=== PATIENT | female | born 1970 | race Caucasian/White ===

== ENCOUNTER → 2017-04-28 | Outpatient (CLI) | payer BC ==
--- NOTE | 2017-04-29 06:59 | MM ---
Reason for exam: additional evaluation requested from abnormal screening. Last mammogram was performed less than 1 month ago. History: Family history of breast cancer in mother at age 65 and breast cancer in maternal aunt at age 56. Took hormonal contraceptives for 12 years. Physical Findings: Nurse did not find any significant physical abnormalities on exam. MG Work Up Mamm w CAD LT Spot compression CC, spot compression MLO, and LM view(s) were taken of the left breast. Prior study comparison: April 16, 2017, bilateral MG screening mammo w CAD. May 27, 2015, bilateral MG screening mammo w CAD. The breast tissue is heterogeneously dense. This may lower the sensitivity of mammography. There is no discrete abnormality persists on additional views. These results were verbally communicated with the patient and result sheet given to the patient on 04/28/17. ASSESSMENT: Negative, BI-RAD 1 RECOMMENDATION: Return to routine screening mammogram schedule for both breasts.
== END | disposition home or self-care (01) ==
LOC: RADMAMWWP 14:33
PROVIDERS: ATTEND Obstetrics & Gynecology
DX: R92.8 Other abnormal and inconclusive findings on diagnostic imaging of breast (principal)
CPT/HCPCS: 77065

== ENCOUNTER → 2018-05-12 | Outpatient (CLI) | payer BC ==
--- NOTE | 2018-05-14 14:11 | MM ---
Reason for exam: screening (asymptomatic). Last mammogram was performed 1 year ago. History: Family history of breast cancer in mother at age 65 and breast cancer in maternal aunt at age 56. Took hormonal contraceptives for 12 years. MG 3D Screening Mammo W/Cad Bilateral CC and MLO view(s) were taken. XCCL view(s) were taken of the left breast. Prior study comparison: April 28, 2017, left breast MG work up mamm w CAD LT. April 16, 2017, bilateral MG screening mammo w CAD. No significant changes when compared with prior studies. ASSESSMENT: Benign, BI-RAD 2 RECOMMENDATION: Routine screening mammogram of both breasts in 1 year.
== END | disposition home or self-care (01) ==
LOC: RADMAMWWP 14:04
PROVIDERS: ATTEND Obstetrics & Gynecology
DX: Z12.31 Encounter for screening mammogram for malignant neoplasm of breast (principal); Z80.3 Family history of malignant neoplasm of breast
CPT/HCPCS: 77063; 77067

== ENCOUNTER → 2019-06-12 | Outpatient (CLI) | payer BC ==
--- NOTE | 2019-06-13 09:07 | MM ---
Reason for exam: screening (asymptomatic). Last mammogram was performed 1 year and 1 month ago. History: Family history of breast cancer in mother at age 65 and breast cancer in maternal aunt at age 56. Took hormonal contraceptives for 12 years. Physical Findings: A clinical breast exam by your physician is recommended on an annual basis and results should be correlated with mammographic findings. MG 3D Screening Mammo W/Cad Bilateral CC and MLO view(s) were taken. Prior study comparison: May 12, 2018, bilateral MG 3d screening mammo w/cad. April 28, 2017, left breast MG work up mamm w CAD LT. The breast tissue is heterogeneously dense. This may lower the sensitivity of mammography. No significant changes when compared with prior studies. ASSESSMENT: Negative, BI-RAD 1 RECOMMENDATION: Routine screening mammogram of both breasts in 1 year.
== END | disposition home or self-care (01) ==
LOC: RADMAMWWP 07:07
PROVIDERS: ATTEND Family Medicine
DX: Z12.31 Encounter for screening mammogram for malignant neoplasm of breast (principal)
CPT/HCPCS: 77063; 77067

== ENCOUNTER → 2020-07-25 | Outpatient (CLI) | payer BC ==
--- NOTE | 2020-07-29 10:20 | MM ---
Reason for exam: screening (asymptomatic). Last mammogram was performed 1 year and 1 month ago. History: Family history of breast cancer in mother at age 65 and breast cancer in maternal aunt at age 56. Took hormonal contraceptives for 12 years. Physical Findings: A clinical breast exam by your physician is recommended on an annual basis and results should be correlated with mammographic findings. MG 3D Screening Mammo W/Cad Bilateral CC and MLO view(s) were taken. Prior study comparison: June 12, 2019, bilateral MG 3d screening mammo w/cad. May 12, 2018, bilateral MG 3d screening mammo w/cad. April 16, 2017, bilateral MG screening mammo w CAD. May 27, 2015, bilateral MG screening mammo w CAD. The breast tissue is heterogeneously dense. This may lower the sensitivity of mammography. No significant changes when compared with prior studies. ASSESSMENT: Benign, BI-RAD 2 RECOMMENDATION: Routine screening mammogram of both breasts in 1 year.
== END | disposition home or self-care (01) ==
LOC: RADMAMWWP 07:37
PROVIDERS: ATTEND Obstetrics & Gynecology
DX: Z12.31 Encounter for screening mammogram for malignant neoplasm of breast (principal); Z80.3 Family history of malignant neoplasm of breast
CPT/HCPCS: 77063; 77067

== ENCOUNTER 2021-02-12 07:15 | Day surgery (SDC) | payer BC ==
[2021-02-10 11:52] VITALS: BMI 25.4
[2021-02-12] MEDS ORDERED: LIDOCAINE 1% (10MG/ML) FOR IV START INTRADERMA PRN (07:36)
[2021-02-12] MEDS ORDERED: LACTATED RINGERS 1,000 ML IV SCH (07:36)
[2021-02-12 07:56] LABS: Glucose,Whole Blood 87 mg/dL (75-99)
[2021-02-12] MEDS ORDERED: ONDANSETRON 4 MG/2 ML VIAL ONE (07:58)
[2021-02-12] MEDS ORDERED: DEXAMETHASONE SOD PHOSPHATE 4 MG/ML 1 ML VIAL IV ONE (08:02)
[2021-02-12] MEDS ORDERED: ONDANSETRON 4 MG/2 ML VIAL IVP ONE (08:02)
[2021-02-12] MEDS ORDERED: LIDOCAINE 1% INJ 10MG/ML (20 ML MDV) SQ ONE (08:27)
[2021-02-12] MEDS ORDERED: ePHEDrine SULFATE/0.9% NACL/PF 50 MG/5 ML SYRINGE IV ONE (08:36)
[2021-02-12] MEDS ORDERED: LIDOCAINE 1% INJ 10MG/ML (20 ML MDV) ONE (08:36)
[2021-02-12] MEDS ORDERED: PROPOFOL 10 MG/ML 20 ML VIAL IV ONE (08:36)
[2021-02-12] MEDS ORDERED: fentaNYL (PF) 50 MCG/ML 2 ML AMP ONE (08:36)
[2021-02-12] MEDS ORDERED: MIDAZOLAM 2 MG/2 ML VIAL ONE (08:36)
[2021-02-12] MEDS ORDERED: SODIUM CHLORIDE 0.9% 100 ML with CLINDAMYCIN 600 MG IV ONE ×2 (08:41)
--- NOTE | 2021-02-12 09:48 | P.OP ---
Date of Procedure: 02/12/21 Preoperative Diagnosis: Temporal arteritis, left. Postoperative Diagnosis: Same, pending path report. Procedure(s) Performed: Excisional biopsy left temporal artery. Implants: None. Anesthesia: GETA (Via LMA.) Surgeon: Ricardo Duarte Estimated Blood Loss (ml): 2 Urine output (ml): 0 Pathology: other (Excised portion left temporal artery) Condition: stable Disposition: PACU Indications for Procedure: Patient is a 50-year-old female who presented with a history of visual disturbances of the left eye as well as cephalgia. Concern was expressed for the possibility of temporal arteritis and thus excisional biopsy was offered to the patient. The procedure, risk and benefits were discussed. Patient wished to proceed. Description of Procedure: Patient was brought the upper and placed in supine position and administered general inhalational by the department of anesthesia. Patient received 600 mg of Cleocin intravenously in the perioperative phase for prophylactic antibiotic therapy. The left for head area sterilely prepped and draped in usual manner. Hand held continuous wave Doppler was utilized to confirm location of the artery as palpation did not reveal clearly the location of the artery. Once identified 1% Xylocaine was utilized for local anesthesia tissues overlying the artery. Skin incision was made carried down to the level of the vessel. The artery was identified and approximately 2 cm segment of the artery was excised. He was stasis was achieved using electrocautery. Dermis was closed with 4-0 Monocryl placed in running intradermal fashion and skin glue was then applied. Patient tolerated the procedure well and was taken to the recover area in satisfactory and stable condition.
[2021-02-12] MEDS ORDERED: HYDROmorphone 0.5 MG/0.5 ML SYRINGE IVP ONE ×2 (09:50→10:05)
[2021-02-12 09:56] VITALS: TEMP 97.7
[2021-02-12 10:22] VITALS: RESP 16
[2021-02-12 10:53] VITALS: BP 100/64; PULSE 64
== END 2021-02-12 11:00 | disposition home or self-care (01) ==
LOC: OR 07:15
PROVIDERS: ATTEND Surgery
DX: H53.9 Unspecified visual disturbance (principal); R51.9 Headache, unspecified; R70.0 Elevated erythrocyte sedimentation rate; I10 Essential (primary) hypertension; Z88.0 Allergy status to penicillin; E78.5 Hyperlipidemia, unspecified; K21.9 Gastro-esophageal reflux disease without esophagitis; Z79.899 Other long term (current) drug therapy
CPT/HCPCS: 81025; 88305; 84132; 37609; J2250; J1100; J2405; J2001; J3010; J2704; J1170

== ENCOUNTER → 2021-02-26 | Outpatient (CLI) | payer BC ==
--- NOTE | 2021-02-26 10:51 | MR ---
EXAMINATION TYPE: MR brain wo/w con DATE OF EXAM: 02/26/2021 COMPARISON: None HISTORY: Headaches TECHNIQUE: Multiplanar, multisequence images of the brain and brainstem is performed without and with IV contras t, utilizing 6.5 mL intravenous Gadavist . FINDINGS: Diffusion weighted images demonstrate no evidence of a recent infarct or other diffusion ab normality. There is no extra-axial fluid collection. Scattered hyperintensities are present on inve rsion recovery and T2-weighted sequences involving the frontal lobes, periventricular white matter, s ubcortical white matter, approximately 10-15 lesions are present, largest in the right frontal lobe m easures proximally 4 to 5 mm, axial image 21. The ventricular system and cisternal spaces are normal in size and appearance. The brain volume is age appropriate. Midline structures demonstrate normal morphology. The craniocervical junction appears within normal limits. Post contrast images demonstrate some branching enhancement involved in the juan carlos, axial imag e #30, 31, sagittal image #62 through 67. The dural venous sinuses appear patent. The visualized sinu ses are clear and the globes are intact. IMPRESSION: Nonspecific white matter demyelination can be related to entity such as migraine headache s, hypertension, vasculitis, multiple sclerosis and Lyme disease felt to be less likely. Possible vas cular malformation noted within the juan carlos.
== END | disposition home or self-care (01) ==
LOC: RADMRIMAIN 06:34
PROVIDERS: ATTEND Internal Medicine
DX: R51.9 Headache, unspecified (principal)
CPT/HCPCS: 70553; A9585

== ENCOUNTER → 2021-08-11 | Outpatient (CLI) | payer BC ==
--- NOTE | 2021-08-13 10:42 | MM ---
Reason for exam: screening (asymptomatic). Last mammogram was performed 1 year and 1 month ago. History: Family history of breast cancer in mother at age 65 and breast cancer in maternal aunt at age 56. Took hormonal contraceptives for 12 years. Physical Findings: A clinical breast exam by your physician is recommended on an annual basis and results should be correlated with mammographic findings. MG 3D Screening Mammo W/Cad Bilateral CC and MLO view(s) were taken. Prior study comparison: July 25, 2020, bilateral MG 3d screening mammo w/cad. June 12, 2019, bilateral MG 3d screening mammo w/cad. The breast tissue is extremely dense which could obscure a lesion on mammography. No significant changes when compared with prior studies. ASSESSMENT: Benign, BI-RAD 2 RECOMMENDATION: Routine screening mammogram of both breasts in 1 year.
== END | disposition home or self-care (01) ==
LOC: RADMAMWWP 16:36
PROVIDERS: ATTEND Obstetrics & Gynecology
DX: Z12.31 Encounter for screening mammogram for malignant neoplasm of breast (principal); Z80.3 Family history of malignant neoplasm of breast
CPT/HCPCS: 77063; 77067

== ENCOUNTER → 2022-08-12 | Outpatient (CLI) | payer BC ==
--- NOTE | 2022-08-12 11:52 | MM ---
Reason for Exam: Screening (asymptomatic). Last screening mammogram was performed 12 month(s) ago. Patient History: Menarche at age 13. First Full-Term at age 23. Patient used Hormonal Contraceptives for 12 years. Maternal aunt had breast cancer, age 56. Mother had breast cancer, age 65. Last menstrual period: 07/31/2022 Risk Values: Claudia 5 year model risk: 2.0%. NCI Lifetime model risk: 18.1%. Prior Study Comparison: 06/12/2019 Bilateral Screening Mammogram, [facility]. 07/25/2020 Bilateral Screening Mammogram, [facility]. 08/11/2021 Bilateral Screening Mammogram, [facility]. Tissue Density: The breast tissue is heterogeneously dense. This may lower the sensitivity of mammography. Findings: Analyzed By CAD. There is no suspicious group of microcalcifications or new suspicious mass in either breast. Benign-appearing calcifications within both breasts. Overall Assessment: Benign, BI-RAD 2 Management: Screening Mammogram of both breasts in 1 year. A clinical breast exam by your physician is recommended on an annual basis and results should be correlated with mammographic findings. Electronically signed and approved by: Maco Herrera D.O.
== END | disposition home or self-care (01) ==
LOC: RADMAMWWP 07:29
PROVIDERS: ATTEND Obstetrics & Gynecology
DX: Z12.31 Encounter for screening mammogram for malignant neoplasm of breast (principal); Z80.3 Family history of malignant neoplasm of breast
CPT/HCPCS: 77063; 77067

== ENCOUNTER → 2022-11-02 | Outpatient (CLI) | payer BC ==
--- NOTE | 2022-11-02 21:20 | XR ---
EXAMINATION TYPE: XR knee 4V RT DATE OF EXAM: 11/02/2022 COMPARISON: NONE HISTORY: Pain TECHNIQUE: Three views are submitted. FINDINGS: Joint spaces are preserved. Osseous structures are intact. No acute fracture seen. IMPRESSION: 1. No acute fracture or dislocation. If symptoms persist consider MRI.
--- NOTE | 2022-11-02 21:25 | XR ---
EXAMINATION TYPE: XR chest 2V DATE OF EXAM: 11/02/2022 COMPARISON: 09/16/2021 TECHNIQUE: PA and lateral views submitted. HISTORY: Cough FINDINGS: The lungs are clear and there is no pneumothorax, pleural effusion, or focal pneumonia. Heart size normal and no overt failure. Osseous structures demonstrate hypertrophic and degenerative changes of the spine. Elevation of the left clavicle. AC joint arthropathy bilaterally. IMPRESSION: 1. No acute process. 2. Correlate for AC joint separation on the left with the clavicle riding above the level of the acro mium.
== END | disposition home or self-care (01) ==
LOC: RADXRMAIN 14:28
PROVIDERS: ATTEND Internal Medicine
DX: R05.9 Cough, unspecified (principal); M25.561 Pain in right knee
CPT/HCPCS: 71046

== ENCOUNTER → 2022-11-20 | Outpatient (CLI) | payer BC ==
--- NOTE | 2022-11-20 08:58 | CT ---
EXAMINATION TYPE: CT chest wo con DATE OF EXAM: 11/20/2022 COMPARISON: 11/02/2022 HISTORY: 52-year-old female R05.9, Cough x3 months. TECHNIQUE: Contiguous axial scanning of the chest without contrast. Coronal and sagittal reconstructi ons performed. CT DLP: 146.2mGycm. Automatic exposure control utilized for a dose reduction. FINDINGS: The heart is normal sizer without pericardial effusion. LAD coronary artery calcifications are presen t. Aorta normal caliber with conventional arch vessel branching anatomy. No thoracic lymphadenopathy by CT size criteria. There is some focal volume loss and airspace disease within the anterior basilar right middle lobe an d inferior lingula. Minimal strandy scarring or atelectasis lateral right midlung. No other consolida tion or pleural effusion is seen. Tiny hiatal hernia. Visualized upper abdomen show subtle densities along the renal pyramids, probably concentrated renal salts. Mild degenerative disc disease lower thoracic spine. IMPRESSION: Focal opacities within the basilar right middle lobe and inferior lingula. Pneumonia is possible. Giv en the distribution, correlate to exclude atypical MELANY infection. Consider pulmonary medicine referra l if no established diagnosis.
== END | disposition home or self-care (01) ==
LOC: RADCTMAIN 07:06
PROVIDERS: ATTEND Internal Medicine
DX: R05.9 Cough, unspecified (principal); R91.8 Other nonspecific abnormal finding of lung field
CPT/HCPCS: 71250

== ENCOUNTER → 2023-02-01 | Outpatient (CLI) | payer BC ==
--- NOTE | 2023-02-01 08:22 | CT ---
EXAMINATION TYPE: CT chest w con CT DLP: 132.9 mGycm, Automated exposure control for dose reduction was used. DATE OF EXAM: 02/01/2023 8:06 AM COMPARISON: CT chest 11/20/2022 CLINICAL INDICATION:Female, 52 years old with history of J18.9 pneumonia; PHH, pneumonia TECHNIQUE: Multiple axial images were obtained through the chest following the administration of 100 cc of Isovue 300. . Coronal and sagittal reformats reviewed. FINDINGS: LUNGS/ PLEURA: No pleural effusion, pneumothorax, focal consolidation. Resolution of previously demon strated airspace opacities within the right middle lobe and lingula. No suspicious pulmonary nodules or masses. AIRWAY: Patent and unremarkable.. HEART: Size within normal limits. No pericardial effusion. Mild coronary artery calcifications of the LAD. MEDIASTINUM: No evidence of adenopathy. VASCULATURE: No aortic aneurysm. MUSCULOSKELETAL: Mild disc degeneration changes are present throughout the thoracolumbar spine. No ac francis osseous adenopathy. SOFT TISSUES/LYMPH NODES: Unremarkable. LOWER NECK: No significant findings. 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 Nonobstructive 4 mm left donnie al calculus. IMPRESSION: 1. No acute thoracic process. Resolution of previously demonstrated right middle lobe and lingula air space opacities. 2. Cavernous transformation of the portal vein. 3. Nonobstructive left renal calculus.
== END | disposition home or self-care (01) ==
LOC: RADCTMAIN 07:41
PROVIDERS: ATTEND Internal Medicine Critical Care Medicine
DX: J18.9 Pneumonia, unspecified organism (principal); N20.0 Calculus of kidney; R91.8 Other nonspecific abnormal finding of lung field
CPT/HCPCS: 71260; Q9967

== ENCOUNTER → 2023-05-12 | Outpatient (CLI) | payer BC ==
--- NOTE | 2023-05-12 10:16 | XR ---
EXAMINATION TYPE: XR Hip Complete LT DATE OF EXAM: 05/12/2023 COMPARISON: NONE HISTORY: Pain TECHNIQUE: 2 views submitted FINDINGS: There is no evidence of erosive change or acute fracture. Hypertrophic changes of the acetabulum. The re is spurring along the greater trochanter. Calcification in the pelvis. Mild SI joint arthropathy. IMPRESSION: 1. Mild hypertrophic arthropathy of the hip correlate for femoral acetabular impingement. 2. Spurring of the greater trochanter could be associated with trochanteric bursitis. 3. Mild SI joint arthropathy.
== END | disposition home or self-care (01) ==
LOC: RADXRMAIN 09:42
PROVIDERS: ATTEND Internal Medicine
DX: M16.12 Unilateral primary osteoarthritis, left hip (principal); M25.752 Osteophyte, left hip; M46.1 Sacroiliitis, not elsewhere classified
CPT/HCPCS: 73502

== ENCOUNTER 2023-06-01 10:27 | Emergency (ER) | payer BC ==
[2023-06-01 11:06] VITALS: BP 135/89; RESP 16; TEMP 98
--- NOTE | 2023-06-01 11:45 | ED ---
Fall HPI - General Chief Complaint: Fall Stated Complaint: Foot and arm injury, Fall Time Seen by Provider: 06/01/23 11:29 Source: patient, RN notes reviewed Mode of arrival: ambulatory - History of Present Illness Initial Comments: Patient is a 52-year-old female presented to ER with a chief complaint of a fall. Patient states last night she was walking up a narrow set of stairs with cleaning products in her hands and accidentally tripped hitting her left forearm on the railing. Patient also was endorsing left foot pain. Patient states she did ice and take ibuprofen for pain control with little relief. Patient states it is painful to walk. Patient denies any head injury, loss of consciousness, blood thinner use. Patient denies any paresthesias, weakness, or other injuries. - Related Data Home Medications Medication Instructions Recorded Confirmed Baclofen 10 mg PO HS 02/10/21 05/29/22 Ibuprofen 200 mg PO Q8H PRN 02/10/21 05/29/22 Lisinopril-Hctz 10-12.5 mg 1 tab PO DAILY 02/10/21 05/29/22 [Zestoretic 10-12.5] Allergies Allergy/AdvReac Type Severity Reaction Status Date / Time Penicillins Allergy Rash/Hives Verified 06/01/23 11:04 Review of Systems ROS Statement: Those systems with pertinent positive or pertinent negative responses have been documented in the HPI. ROS Other: All systems not noted in ROS Statement are negative. Past Medical History Past Medical History: GERD/Reflux, Hyperlipidemia, Hypertension Additional Past Medical History / Comment(s): migraines, History of Any Multi-Drug Resistant Organisms: None Reported Additional Past Surgical History / Comment(s): D &C, Past Anesthesia/Blood Transfusion Reactions: Family History of Problems w/ Anest hesia Additional Past Anesthesia/Blood Transfusion Reaction / Comment(s): mother has diff coming out of anesthesia Past Psychological History: No Psychological Hx Reported Smoking Status: Never smoker Past Alcohol Use History: Rare Past Drug Use History: None Reported - Past Family History Mother Family Medical History: Cancer Additional Family Medical History / Comment(s): breast General Exam Limitations: no limitations General appearance: alert, in no apparent distress Head exam: Present: atraumatic, normocephalic, normal inspection Eye exam: Present: normal appearance, PERRL, EOMI. Absent: scleral icterus, conjunctival injection, periorbital swelling Respiratory exam: Present: normal lung sounds bilaterally. Absent: respiratory distress, wheezes, rales, rhonchi, stridor Cardiovascular Exam: Present: regular rate, normal rhythm, normal heart sounds. Absent: systolic murmur, diastolic murmur, rubs, gallop, clicks Extremities exam: Present: normal inspection, full ROM, normal capillary refill, other (Tender to mid left forearm. Minimal bruising 2+ left radial pulse. Sensation intact. 2+ left dorsalis pedis pulse. Full range of motion. Sensation intact. Tenderness to proximal fifth metatarsal. Tenderness to calcaneus). Absent: tenderness, pedal edema, joint swelling, calf tenderness Neurological exam: Present: alert, oriented X3, CN II-XII intact Psychiatric exam: Present: normal affect, normal mood Skin exam: Present: warm, dry, intact, normal color. Absent: rash Course Vital Signs 06/01/23 06/01/23 11:02 13:01 Temperature 98 F Pulse Rate 85 78 Respiratory 16 16 Rate Blood Pressure 135/89 O2 Sat by Pulse 99 98 Oximetry Medical Decision Making - Medical Decision Making Was pt. sent in by a medical professional or institution (, PA, DYNAMOMETER TUNER, urgent care, hospital, or [facility]...) When possible be specific @ -No Did you speak to anyone other than the patient for history (EMS, parent, family, police, friend...)? What history was obtained from this source @ -No Did you review nursing and triage notes (agree or disagree)? Why? @ -I reviewed and agree with nursing and triage notes Were old charts reviewed (outside hosp., previous admission, EMS record, old EKG, old radiological studies, urgent care reports/EKG's, [facility] records)? Report findings @ -No old charts were reviewed Differential Diagnosis (chest pain, altered mental status, abdominal pain women, abdominal pain men, vaginal bleeding, weakness, fever, dyspnea, syncope, headache, dizziness, GI bleed, back pain, seizure, CVA, palpatations, mental health, musculoskeletal)? @ -Differential Musculoskeletal Muscular strain, contusion, ligament sprain, fracture, arthritis, septic arthritis, bursitis, cellulitis, muscle spasm, nerve compression, DVT, arterial occlusion, herpes zoster, electrolyte abnormality, tumor.... This is not meant to be in all inclusive list EKG interpreted by me (3pts min.). @ -None X-rays interpreted by me (1pt min.). @ -Left forearm x-ray interpreted by me shows no acute process. Left foot x- ray interpreted by me significant for calcaneal spur fracture and a bone density adjacent to the cuboid bone. CT interpreted by me (1pt min.). @ -None done U/S interpreted by me (1pt. min.). @ -None done What testing was considered but not performed or refused? (CT, X-rays, U/S, labs)? Why? @ -None What meds were considered but not given or refused? Why? @ -None Did you discuss the management of the patient with other professionals (professionals i.e. , PA, DYNAMOMETER TUNER, lab, RT, psych nurse, rn social work, plain clothes police officer, teacher, air antisubmarine officer, case resource manager)? Give summary @ -No Was smoking cessation discussed for >3mins.? @ -No Was critical care preformed (if so, how long)? @ -No Were there social determinants of health that impacted care today? How? ( Homelessness, low income, unemployed, alcoholism, drug addiction, transportation, low edu. Level, literacy, decrease access to med. care, snf, rehab)? @ -No Was there de-escalation of care discussed even if they declined (Discuss DNR or withdrawal of care, Hospice)? DNR status @ -No What co-morbidities impacted this encounter? (DM, HTN, Smoking, COPD, CAD, Cancer, CVA, ARF, Chemo, Hep., AIDS, mental health diagnosis, sleep apnea, morbid obesity)? @ -None Was patient admitted / discharged? Hospital course, mention meds given and route, prescriptions, significant lab abnormalities, going to OR and other pertinent info. @ -Discharge. Patient is a 52-year-old female presented to ER with chief complaint of a fall injury. Patient denies head injury, loss of consciousness or blood thinner use. History and physical exam were completed. Patient in no signs of acute distress. Patient's left upper and lower extremity neurovascularly intact. Imaging left forearm negative for acute process. Left foot x-ray interpreted by me significant for calcaneal spur fracture and a bone density adjacent to the cuboid bone. Patient tender to proximal fifth metatarsal and plantar surface calcaneus. Patient also had difficulty walking due to pain on exam. Patient received by mouth Tylenol for pain control in the ER. Patient placed in a postoperative boot. Patient advised to follow-up with orthopedics in the next 1 to 2 days. Return parameters were discussed. Patient be discharged stable condition with follow-up to orthopedics. Patient expressed understanding and agreement with plan. Undiagnosed new problem with uncertain prognosis? @ -No Drug Therapy requiring intensive monitoring for toxicity (Heparin, Nitro, Insulin, Cardizem)? @ -No Were any procedures done? @ -No Diagnosis/symptom? @ -Calcaneal spur fracture/cuboid fracture Acute, or Chronic, or Acute on Chronic? @ -Acute Uncomplicated (without systemic symptoms) or Complicated (systemic symptoms)? @ -Uncomplicated Side effects of treatment? @ -No Exacerbation, Progression, or Severe Exacerbation? @ -No Poses a threat to life or bodily function? How? (Chest pain, USA, DC, pneumonia, PE, COPD, DKA, ARF, appy, cholecystitis, CVA, Diverticulitis, Homicidal, Suicidal, threat to staff... and all critical care pts) @ -No - Radiology Data Radiology results: report reviewed, image reviewed Disposition Clinical Impression: Cuboid fracture, Bone spur of inferior portion of calcaneus Disposition: HOME SELF-CARE Condition: Stable Instructions (If sedation given, give patient instructions): Foot Fracture in Adults (ED), Fall Prevention (ED) Additional Instructions: Please continue [id number] Tylenol and Motrin for pain control. Please follow-up with orthopedics in the next 1 to 2 days. Return to ER for any new or worsening symptoms. Is patient prescribed a controlled substance at d/c from ED?: No Referrals: Altaf Harris DO [Primary Care Provider] - 1-2 days Lenny James MD [STAFF PHYSICIAN] - 1-2 days Time of Disposition: 12:47
--- NOTE | 2023-06-01 12:33 | XR ---
EXAMINATION TYPE: XR foot complete LT DATE OF EXAM: 06/01/2023 COMPARISON: NONE HISTORY: Pain TECHNIQUE: Three views are submitted. FINDINGS: The osseous structures are intact. There is no acute fracture or dislocation. Mild first MTP joint hypertrophic arthropathy. There is a calcaneal spur with fracture line at its base. There also is a tiny bony density adjacent to the cuboid bone laterally could represent a tiny avulsion fracture. IMPRESSION: 1. Moderate-sized plantar calcaneal spur which has a fracture line at its base. Correlate with point tenderness. 2. Tiny bony density adjacent to the cuboid bone laterally can be associated with a tiny chip or avul ace fracture correlate with point tenderness.
--- NOTE | 2023-06-01 12:35 | XR ---
EXAMINATION TYPE: XR forearm LT DATE OF EXAM: 06/01/2023 12:27 PM CLINICAL INDICATION:Female, 52 years old with history of injury; COMPARISON: None TECHNIQUE: XR forearm LT; forearm was examined in AP and lateral projections. FINDINGS: No acute osseous pathology, soft tissue swelling or joint dislocations are seen. IMPRESSION: No evidence of acute fracture.
[2023-06-01] MEDS ORDERED: ACETAMINOPHEN TAB 325 MG TAB PO STA (12:51)
[2023-06-01 13:05] VITALS: PULSE 78
== END 2023-06-01 13:01 | disposition home or self-care (01) ==
LOC: EC 10:27
DX: S92.212A Displaced fracture of cuboid bone of left foot, initial encounter for closed fracture (principal); M77.32 Calcaneal spur, left foot; S50.12XA Contusion of left forearm, initial encounter; I10 Essential (primary) hypertension; Z79.899 Other long term (current) drug therapy; Z88.0 Allergy status to penicillin; W10.9XXA Fall (on) (from) unspecified stairs and steps, initial encounter; Y93.01 Activity, walking, marching and hiking
CPT/HCPCS: 99283

== ENCOUNTER 2023-08-06 10:58 | Day surgery (SDC) | payer BC ==
[2023-07-05 12:20] VITALS: BMI 20.5
[~2023-08-06 10:58] MED LIST: HYDROmorphone 0.5 MG/0.5 ML SYRINGE IVP PRN; LIDOCAINE 1% (10MG/ML) FOR IV START INTRADERMA PRN; Pre Op ABX Message 1 EACH MISC MISCELLANE ONE
[2023-08-06] MEDS: LACTATED RINGERS 1,000 ML IV SCH (11:35)
[2023-08-06] MEDS: DEXAMETHASONE SOD PHOSPHATE 4 MG/ML 1 ML VIAL IV ONE (11:48)
[2023-08-06] MEDS: ONDANSETRON 4 MG/2 ML VIAL IVP ONE (11:48)
[2023-08-06] MEDS: MIDAZOLAM 2 MG/2 ML VIAL IV PRN (11:48)
[2023-08-06] MEDS ORDERED: PROPOFOL 10 MG/ML 20 ML VIAL IV ONE (12:25)
[2023-08-06] MEDS ORDERED: ePHEDrine 50 MG/ML 1 ML VIAL ONE (12:25)
[2023-08-06] MEDS ORDERED: LIDOCAINE 1% INJ 10MG/ML (20 ML MDV) ONE (12:25)
[2023-08-06] MEDS ORDERED: KETOROLAC 15 MG/ML 1 ML VIAL ONE (12:25)
[2023-08-06] MEDS ORDERED: fentaNYL (PF) 50 MCG/ML 2 ML AMP ONE (12:25)
[2023-08-06] MEDS ORDERED: MIDAZOLAM 2 MG/2 ML VIAL ONE (12:25)
[2023-08-06] MEDS: BUPIVACAINE (PF) 0.25% 30 ML VIAL SQ ONE (12:45)
[2023-08-06 13:38] VITALS: RESP 16; TEMP 97.4
--- NOTE | 2023-08-06 14:34 | P.OP ---
Date of Procedure: 08/06/23 Preoperative Diagnosis: fractured plantar calcaneal spur left foot Postoperative Diagnosis: same Procedure(s) Performed: excision of plantar calcaneal spur left foot Implants: none Anesthesia: KENRICKA Surgeon: Ike Maria Estimated Blood Loss (ml): 2 Pathology: none sent Condition: stable Disposition: PACU Description of Procedure: the patient was brought into the operative room and placed on table supine position. Timeout was taken to confirm correct patient identifiers, correct laterality surgery, and correct procedure. Once the staff in the room were in agreement timeout, the patient was induced and placed under general anesthesia. 10 mL 0.25% Marcaine was injected over the surgical site of the medial aspect of left heel. The left foot was then prepped and draped in usual manner. Under fluoroscopic visualization, a metallic marker is used to indicate where the fracture calcaneal spur was located. Once that was done the skin was marked and an incision was made through the skin. Blunt instrumentation was used to dissect through the saphenous layer and create a canal superior to the plantar fascia all the way to the calcaneal spur. A 4.0 mm wedge bur was then inserted to the spur. The bur was engaged and used to reduce the spur completely. Fluoroscopic imaging showed complete resolution of the spur. The wound is then thoroughly irrigated with sterile saline. The skin was closed with 4-0 nylon. Nonadherent gauze and a dry sterile dressing were applied to the left foot. The patient tolerated above procedure and anesthesia well and went to recovery with vital signs stable
[2023-08-06 15:02] VITALS: BP 130/74; PULSE 83
== END 2023-08-06 14:58 | disposition home or self-care (01) ==
LOC: OR 10:58
PROVIDERS: ATTEND Podiatrist
DX: M77.32 Calcaneal spur, left foot (principal); I10 Essential (primary) hypertension; K21.9 Gastro-esophageal reflux disease without esophagitis; Z88.0 Allergy status to penicillin; Z79.899 Other long term (current) drug therapy
CPT/HCPCS: 81025; 28119; J2250; J1100; J2405; J2001; J3010; J1885; J2704; J0665

== ENCOUNTER → 2023-09-16 | Outpatient (CLI) | payer BC ==
--- NOTE | 2023-09-17 10:06 | MM ---
Reason for Exam: Screening (asymptomatic). Last mammogram was performed 1 year(s) and 1 month(s) ago. Patient History: Menarche at age 13. First Full-Term at age 23. Premenopausal. Patient used Hormonal Contraceptives for 12 years. Maternal aunt had breast cancer, age 56. Mother had breast cancer, age 65. Risk Values: Claudia 5 year model risk: 2.0%. NCI Lifetime model risk: 17.9%. Prior Study Comparison: 07/25/2020 Bilateral Screening Mammogram, [facility]. 08/11/2021 Bilateral Screening Mammogram, [facility]. 08/12/2022 Bilateral MG 3D screening mammo w/cad, [facility]. Tissue Density: The breasts are extremely dense, which lowers the sensitivity of mammography. Findings: Analyzed By CAD. The pattern is symmetrical. No significant interval change No suspicious groups of microcalcifications, spiculated or lobular masses, architectural distortion or other secondary signs of malignancy are mammographically apparent. Overall Assessment: Benign, BI-RAD 2 Management: Screening Mammogram of both breasts in 1 year. A negative mammogram report should not preclude additional follow up of suspicious palpable abnormalities. Patient should continue monthly self breast exam. A clinical breast exam by your physician is recommended on an annual basis and results should be correlated with mammographic findings. Note on Claudia scores and lifetime risk: 1. A Claudia score greater than 3% is considered moderate risk. If this is the case, consider specialist referral to assess eligibility for a risk reducing agent. 2. If overall lifetime risk for the development of breast cancer is 20% or higher, the patient may qualify for future screening with alternating mammogram and breast MRI. Electronically signed and approved by: Andrea Parker D.O. Radiologis
== END | disposition home or self-care (01) ==
LOC: RADMAMWWP 15:05
PROVIDERS: ATTEND Obstetrics & Gynecology
DX: Z12.31 Encounter for screening mammogram for malignant neoplasm of breast (principal); Z80.3 Family history of malignant neoplasm of breast
CPT/HCPCS: 77063; 77067

== ENCOUNTER → 2024-01-27 | Outpatient (CLI) | payer BC ==
--- NOTE | 2024-01-27 10:13 | MM ---
Reason for Exam: Clinical finding. Last screening mammogram was performed 5 month(s) ago. Indicated Problems: Lump or thickening of the left side for 2 Week(s). Patient History: Menarche at age 13. First Full-Term at age 23. Perimenopausal. Patient used Hormonal Contraceptives for 12 years. Maternal aunt had breast cancer, age 56. Mother had breast cancer, age 65. Risk Values: Claudia 5 year model risk: 2.1%. NCI Lifetime model risk: 17.6%. Prior Study Comparison: 04/28/2017 Left Diagnostic Mammogram, [facility]. 05/12/2018 Bilateral Screening Mammogram, [facility]. 06/12/2019 Bilateral Screening Mammogram, [facility]. 07/25/2020 Bilateral Screening Mammogram, [facility]. 08/11/2021 Bilateral Screening Mammogram, [facility]. 08/12/2022 Bilateral MG 3D screening mammo w/cad, [facility]. 09/16/2023 Bilateral MG 3D screening mammo w/cad, [facility]. Tissue Density: Left: The breasts are heterogeneously dense, which may obscure small masses. Findings: Analyzed By CAD. No distinct mass or distortion at the site of clinical concern. Ultrasound is recommended. Overall Assessment: Incomplete: need additional imaging evaluation, BI-RAD 0 Management: Diagnostic Breast Ultrasound of the left breast. . Results were given to the patient verbally at the time of exam. Patient should continue monthly self-breast exams. A clinical breast exam by your physician is recommended on an annual basis. This exam should not preclude additional follow-up of suspicious palpable abnormalities. Note on Claudia scores and lifetime risk: 1. A Claudia score greater than 3% is considered moderate risk. If this is the case, consider specialist referral to assess eligibility for a risk reducing agent. 2. If overall lifetime risk for the development of breast cancer is 20% or higher, the patient may qualify for future screening with alternating mammogram and breast MRI. [facility], , 01/27/2024 10:10 AM. Electronically signed and approved by: Carson Shi M.D. Radiologis
--- NOTE | 2024-01-27 10:46 | USB ---
Reason for Exam: Clinical finding. Patient History: Menarche at age 13. First Full-Term at age 23. Perimenopausal. Patient used Hormonal Contraceptives for 12 years. Maternal aunt had breast cancer, age 56. Mother had breast cancer, age 65. Risk Values: Claudia 5 year model risk: 2.1%. NCI Lifetime model risk: 17.6%. Technique: Method: Targeted. Prior Study Comparison: 08/11/2021 Bilateral Screening Mammogram, [facility]. 08/12/2022 Bilateral MG 3D screening mammo w/cad, [facility]. 09/16/2023 Bilateral MG 3D screening mammo w/cad, [facility]. Findings: The area of palpable concern of the left breast, the axilla of the left breast and the retroareolar of the left breast were scanned. Small superficial hypoechoic well marginated hypoechoic lesion measuring 0.4 x 0.25 cm is too small to characterize however may reflect a small complex cyst. Clinical correlation is advised as well as 6 month follow-up ultrasound. Overall Assessment: Probably benign, BI-RAD 3 Management: Diagnostic Breast Ultrasound of the left breast in 6 months. A clinical breast exam by your physician is recommended on an annual basis and results should be correlated with mammographic findings. This exam should not preclude additional follow-up of suspicious palpable abnormalities. Results were given to the patient verbally at the time of exam. [facility], , 01/27/2024 10:31 AM. Electronically signed and approved by: Carson Shi M.D. Radiologis
== END | disposition home or self-care (01) ==
LOC: RADMAMWWP 09:38
PROVIDERS: ATTEND Internal Medicine
DX: N63.20 Unspecified lump in the left breast, unspecified quadrant (principal); Z80.3 Family history of malignant neoplasm of breast
CPT/HCPCS: 77061; 77065

== ENCOUNTER 2024-02-23 07:34 | Day surgery (SDC) | payer BC ==
[~2024-02-23 07:34] MED LIST changes: -HYDROmorphone 0.5 MG/0.5 ML SYRINGE IVP PRN; -Pre Op ABX Message 1 EACH MISC MISCELLANE ONE
[2024-02-23 08:20] VITALS: TEMP 98.3
[2024-02-23] MEDS: LACTATED RINGERS 1,000 ML IV SCH (08:22)
[2024-02-23] MEDS ORDERED: LIDOCAINE 1% INJ 10MG/ML (20 ML MDV) ONE (09:07)
[2024-02-23] MEDS ORDERED: PROPOFOL 10 MG/ML 20 ML VIAL IV ONE (09:07)
[2024-02-23] MEDS: IV FLUID CONTINUATION 1,000 ML IV ONE (09:09)
--- NOTE | 2024-02-23 09:16 | P.PCN ---
Date of Procedure: 02/23/24 Procedure(s) Performed: BRIEF HISTORY: Patient is a 53-year-old, pleasant, white female scheduled for an upper endoscopy as a part evaluation of iron deficiency anemia. She did have a colonoscopy in May 2022 that was negative. Does have longstanding history of GERD and is on omeprazole 20 mg daily.. PROCEDURE PERFORMED: Esophagogastroduodenoscopy with biopsy PREOPERATIVE DIAGNOSIS: Iron deficiency anemia. IV sedation per anesthesia. PROCEDURE: After informed consent was obtained, the patient was brought into the endoscopy unit. IV sedation was administered by Anesthesia under continuous monitoring. Initially the Olympus GIF-140 video endoscope was inserted into the mouth. Esophagus intubated without any difficulty. It was gradually advanced into the stomach and duodenum and carefully examined. The bulb and the second part of the duodenum appeared normal. Cold biopsies were done from the duodenum to rule out celiac disease. The scope at this time was withdrawn to the stomach, adequately insufflated with air, and upon careful examination, mucosa of the antrum, had linear areas of erythema consistent with gastritis and biopsies were done from this area. Mucosa of the body, cardia and the fundus appeared normal. There were several gastric polyps identified measuring between 3 to 5 mm in size which were biopsied. The scope was then withdrawn into the esophagus. The GE junction was located at 39 cm from the incisors. It appeared irregular but there was no evidence of esophagitis or Martinez's esophagus. THe rest of the esophagus appeared normal. There were no erosions or ulcerations seen and the patient tolerated the procedure well. IMPRESSION: 1. Multiple small gastric polyps. 2. Antral erosive gastritis 3. Small hiatal hernia and irregular GE junction but no evidence of esophagitis or Martinez's esophagus. RECOMMENDATIONS: The findings of this examination were discussed with the patient as well as his family. She was advised to follow-up with the biopsy results. Continue with prazosin and iron supplements and monitor CBC periodically..
[2024-02-23 09:34] VITALS: BP 106/67; PULSE 77; RESP 16
== END 2024-02-23 09:50 | disposition home or self-care (01) ==
LOC: ORWHC2ENDO 07:34
PROVIDERS: ATTEND Internal Medicine Gastroenterology
DX: D50.9 Iron deficiency anemia, unspecified (principal); K29.60 Other gastritis without bleeding; K31.7 Polyp of stomach and duodenum; K21.9 Gastro-esophageal reflux disease without esophagitis; K44.9 Diaphragmatic hernia without obstruction or gangrene; I10 Essential (primary) hypertension; E78.5 Hyperlipidemia, unspecified; Z79.899 Other long term (current) drug therapy
CPT/HCPCS: 88305; 43239; J2003; J2704

== ENCOUNTER → 2024-07-31 | Outpatient (CLI) | payer OTHER ==
--- NOTE | 2024-07-31 07:39 | USB ---
Reason for Exam: Follow-up at short interval from prior study. Patient History: Menarche at age 13. First Full-Term at age 23. Perimenopausal. Patient used Hormonal Contraceptives for 12 years. Maternal aunt had breast cancer, age 56. Mother had breast cancer, age 65. Risk Values: Claudia 5 year model risk: 2.1%. NCI Lifetime model risk: 17.6%. Prior Study Comparison: 08/12/2022 Bilateral MG 3D screening mammo w/cad, [facility]. 09/16/2023 Bilateral MG 3D screening mammo w/cad, [facility]. 01/27/2024 Left MG 3D diag mammo w/cad LT, [facility]. 01/27/2024 Left US breast limited LT, [facility]. Findings: The axilla of the left breast and the retroareolar of the left breast were scanned. Targeted ultrasound left breast 11:00 to 1:00 including scanning of the subareolar region and axilla. In the subareolar region, there is redemonstrated benign 8 mm cyst. The previous oval hypoechoic lesion at 12:00, 2 cm from the nipple is no longer seen, likely a complicated cyst that has resolved. Very dense tissues throughout. No other solid or cystic lesion. No axillary adenopathy. Overall Assessment: Benign, BI-RAD 2 Management: Screening Mammogram of both breasts in 2 months. A clinical breast exam by your physician is recommended on an annual basis and results should be correlated with mammographic findings. This exam should not preclude additional follow-up of suspicious palpable abnormalities. Results were given to the patient verbally at the time of exam. [facility], , 07/31/2024 7:36 AM. Electronically signed and approved by: Joey Jain M.D. Radiologist
== END | disposition home or self-care (01) ==
LOC: RADUSWWP 07:14
PROVIDERS: ATTEND Internal Medicine
DX: R92.8 Other abnormal and inconclusive findings on diagnostic imaging of breast (principal); Z92.0 Personal history of contraception; Z80.3 Family history of malignant neoplasm of breast

== ENCOUNTER → 2024-10-04 | Outpatient (CLI) | payer OTHER ==
--- NOTE | 2024-10-04 08:09 | MM ---
Reason for Exam: Screening (asymptomatic). Last mammogram was performed 1 year(s) and 1 month(s) ago. Patient History: Menarche at age 13. First Full-Term at age 23. Perimenopausal. Patient has history of breast feeding. Patient used Hormonal Contraceptives for 12 years. Maternal aunt had breast cancer, age 56. Mother had breast cancer, age 65. Last menstrual period: 09/04/2024 Risk Values: Claudia 5 year model risk: 2.1%. NCI Lifetime model risk: 17.6%. Prior Study Comparison: 04/28/2017 Left Diagnostic Mammogram, [facility]. 05/12/2018 Bilateral Screening Mammogram, [facility]. 06/12/2019 Bilateral Screening Mammogram, [facility]. 07/25/2020 Bilateral Screening Mammogram, [facility]. 08/11/2021 Bilateral Screening Mammogram, [facility]. 08/12/2022 Bilateral MG 3D screening mammo w/cad, [facility]. 09/16/2023 Bilateral MG 3D screening mammo w/cad, [facility]. 01/27/2024 Left MG 3D diag mammo w/cad LT, [facility]. Tissue Density: The breasts are extremely dense, which lowers the sensitivity of mammography. Findings: Analyzed By CAD. There are a few tiny scattered small benign-appearing round calcification of the bilateral breasts redemonstrated. There is no suspicious group of microcalcifications or new distortion in either breast. Overall Assessment: Benign, BI-RAD 2 Management: Screening Mammogram of both breasts in 1 year. Some Advise annual bilateral breast ultrasound surveillance in patients with background dense tissue. Patient should continue monthly self-breast exams. A clinical breast exam by your physician is recommended on an annual basis. This exam should not preclude additional follow-up of suspicious palpable abnormalities. Note on Claudia scores and lifetime risk: 1. A Claudia score greater than 3% is considered moderate risk. If this is the case, consider specialist referral to assess eligibility for a risk reducing agent. 2. If overall lifetime risk for the development of breast cancer is 20% or higher, the patient may qualify for future screening with alternating mammogram and breast MRI. [facility], Workstation: 3, 10/04/2024 8:05 AM. Electronically signed and approved by: Emeka Byrd M.D.
== END | disposition home or self-care (01) ==
LOC: RADMAMWWP 07:36
PROVIDERS: ATTEND Internal Medicine
DX: Z12.31 Encounter for screening mammogram for malignant neoplasm of breast (principal); R92.343 Mammographic extreme density, bilateral breasts; Z92.0 Personal history of contraception; Z80.3 Family history of malignant neoplasm of breast
CPT/HCPCS: 77063; 77067